=== PATIENT | female | born 1995 | race African-American/Black ===

== ENCOUNTER 2017-11-06 21:14 | Emergency (ER) | payer SELFPAY ==
[2017-11-06 21:24] VITALS: BP 136/85; PULSE 90; TEMP 99.1; BMI 31.3
--- NOTE | 2017-11-06 23:14 | PDOC ---
History of Present Illness - General Chief Complaint: Respiratory Stated Complaint: COUGH Time Seen by Provider: 11/06/17 21:20 - History of Present Illness Initial Comments: This 22-year-old woman with no significant past medical history presents with a one-day history of nonproductive cough, subjective fever, sore throat. Patient has just returned by airplane from a 5 day vacation at [facility]. Patient reports no symptoms during the stay; her symptoms began when she was traveling home. She denies vomiting/diarrhea. She has not had significant body aches, shortness of breath or wheezing. Her mother, who traveled with her, has similar symptoms. Patient had flu shot this winter. No history of strep pharyngitis as an adult and no exposure to school-aged children Brief history of smoking: One to 2 cigarettes per day for 3 years, stopping several months ago. No history of asthma or other chronic respiratory illnesses. Past History - Past Medical History Allergies/Adverse Reactions: Allergies Allergy/AdvReac Type Severity Reaction Status Date / Time No Known Allergies Allergy Unverified 11/06/17 21:24 CVA: No COPD: No - Immunization History Immunization Up to Date: Yes - Suicide/Smoking/Psychosocial Hx Smoking History: Unknown if ever smoked Have you smoked in the past 12 months: No Number of Cigarettes Smoked Daily: 0 Information on smoking cessation initiated: No Hx Alcohol Use: No Drug/Substance Use Hx: No Substance Use Type: None Review of Systems - Review of Systems Able to Perform ROS?: Yes Comments:: 12 point review of systems is negative except for what is noted in the history of present illness *Physical Exam - Vital Signs Last Vital Signs Temp Pulse Resp BP Pulse Ox 99.1 F 90 14 136/85 98 11/06/17 21:17 11/06/17 21:17 11/06/17 21:17 11/06/17 21:17 11/06/17 21:17 - Physical Exam Comments: GENERAL: Young adult female, alert and oriented 3, speaking in full sentences and in no acute distress HEAD: Normal with no signs of trauma. EYES: PERRLA, EOMI, sclera anicteric, conjunctiva clear. ENT: Ears normal, nares patent, oropharynx erythematous without exudates. Dry mucous membranes. NECK: Normal range of motion, supple without lymphadenopathy, JVD, or masses. LUNGS: Breath sounds equal, clear to auscultation bilaterally. No wheezes, and no crackles. HEART:Regular rate and rhythm, normal S1 and S2 without murmur, rub or gallop. ABDOMEN:.normal bowel sounds No guarding,tenderness or rebound.No masses No distention. EXTREMITIES: Normal range of motion, no edema. No clubbing or cyanosis. No erythema, or tenderness. NEUROLOGICAL: Cranial nerves II through XII grossly intact. Normal speech. No focal neurological deficits. MUSCULOSKELETAL: Back non-tender to palpation, no CVA tenderness SKIN: Warm, Dry, normal turgor, no rashes or lesions noted. Progress Note - Progress Note Progress Note: Although no known contacts with strep pharyngitis patients, the patient has just arrived home from a vacation and had exposure to many people over the last week. Quick strep/throat culture sent. Quick strep negative. Throat culture pending. Clinical presentation most consistent with viral pharyngitis/viral bronchitis. Doubt influenza. Patient will be discharged with instructions to drink plenty of fluids, eat use anti-inflammatory or acetaminophen as needed for throat pain/fever. The patient should not work for the next 2 days. She should return to the emergency room if she has persistent high fever, severe cough/shortness of breath or vomiting *DC/Admit/Observation/Transfer Diagnosis at time of Disposition: Viral bronchitis Acute pharyngitis Qualifiers: Pharyngitis/tonsillitis etiology: unspecified etiology Qualified Code(s): J02.9 - Acute pharyngitis, unspecified - Discharge Dispostion Disposition: HOME Condition at time of disposition: Stable - Referrals Referrals: Kvng Leavitt MD [Primary Care Provider] - - Patient Instructions Printed Discharge Instructions: DI for Acute Bronchitis Additional Instructions: Rest; drink plenty of water No work until November 09 Motrin/Aleve/Tylenol as needed for throat pain/fever Return here or see if you have high fever/productive cough/wheezing - Post Discharge Activity Forms/Work/School Notes: Back to Work
== END 2017-11-06 23:49 | disposition home or self-care (01) ==
LOC: FER 21:14
DX: J02.9 Acute pharyngitis, unspecified (principal); J20.8 Acute bronchitis due to other specified organisms; B97.89 Other viral agents as the cause of diseases classified elsewhere
CPT/HCPCS: 87070; 87430; 99282-25

== ENCOUNTER 2017-11-18 13:10 | Emergency (ER) | payer SELFPAY ==
--- NOTE | 2017-11-18 13:41 | PDOC ---
History of Present Illness - General Chief Complaint: Cold Symptoms Stated Complaint: cough x2 weeks Time Seen by Provider: 11/18/17 13:41 History Source: Patient Exam Limitations: No Limitations - History of Present Illness Initial Comments: 11/18/17 15:55 Ms Hathaway is a 22 -year-old otherwise healthy female presented to emergency department with a complaint of cough This is her symptoms have been present for approximately 2 weeks, since her return from [place]. No fevers, chills. She notes her cough is productive of yellow and green sputum. Patient denies chest pain, palpitations. She denies shortness of breath. Patient denies fevers or chills. She did get a flu shot. No myalgias. Denies PSH: Denies Medication: Denies ALLERGIES: Father is ALLERGIC to penicillin, therefore patient places this on her chart as her ALLERGY. GENERAL/CONSTITUTIONAL: No: fever, chills, weakness, loss of appetite. HEAD, EYES, EARS, NOSE AND THROAT: No: change in vision, ear pain, discharge, sore throat, throat swelling. CARDIOVASCULAR: No: chest pain, lightheadedness, palpitations, syncope RESPIRATORY: yes: cough No: shortness of breath, wheezing GASTROINTESTINAL: No: nausea, vomiting, diarrhea, abdominal pain GENITOURINARY: No: dysuria, hematuria, frequency, urgency, flank pain. MUSCULOSKELETAL: No: back pain, neck pain, joint pain, muscle swelling or pain SKIN AND BREASTS: No: lesions, pallor, rash or easy bruising. NEUROLOGIC: No: headache, vertigo, paresthesias, weakness ENDOCRINE: No: unexplained weight gain or loss HEMATOLOGIC/LYMPHATIC: No: anemia, easy bleeding, swelling nodes. GENERAL: The patient is in no acute distress. HEAD: Normal EYES: PERRLA, EOMI, sclera anicteric, conjunctiva clear. ENT: Ears normal, nares patent, oropharynx clear without exudates. Moist mucous membranes. NECK: Normal range of motion, supple LUNGS: Breath sounds equal, clear to auscultation bilaterally. No wheezes, and no crackles. HEART:Regular rate and rhythm, normal S1 and S2 without murmur, rub or gallop. ABDOMEN: Soft, nontender, normoactive bowel sounds. No guarding, no rebound. No masses palpable. EXTREMITIES: Normal range of motion NEUROLOGICAL: Cranial nerves II through XII grossly intact. Normal speech. No focal neurological deficits. MUSCULOSKELETAL: Back non-tender to palpation SKIN: Warm, Dry, normal turgor, no rashes or lesions noted. Past History - Past Medical History Allergies/Adverse Reactions: Allergies Allergy/AdvReac Type Severity Reaction Status Date / Time Penicillins Allergy Unknown Verified 11/18/17 13:11 Home Medications: Ambulatory Orders Azithromycin [Zithromax 250mg Tablets -] 250 mg PO UTDICT #6 tab 11/18/17 Benzonatate [Tessalon Pearls -] 100 mg PO TID PRN #21 capsule 11/18/17 Guaifenesin [Mucinex -] 600 mg PO BID #14 tablet.er 11/18/17 CVA: No COPD: No - Immunization History Immunization Up to Date: Yes - Suicide/Smoking/Psychosocial Hx Smoking History: Unknown if ever smoked Have you smoked in the past 12 months: No Number of Cigarettes Smoked Daily: 0 Hx Alcohol Use: No Drug/Substance Use Hx: No Substance Use Type: None Medical Decision Making - Medical Decision Making 11/18/17 15:58 22 y/o female presents with complaints of productive cough and congestion x 2 weeks Based on the patients o2 saturation, physical exam, being afebrile I find it unlikely that she has consolidation Based on the results I believe the patient is most likely suffering from an upper respiratory infection/bronchitis I've instructed the patient to rest, remain hydrated and to take over the counter analgesics/antipyretics for pain or fever as instructed on the package. I have prescribed Azithromycin I've told the patient that if they develop any new or worsening symptoms to present straight to the ER and to follow up with their primary care provider in 24-48 hours. I've explained the above diagnosis and plan to the patient of which they expressed understanding and are in agreement. Clinical impression: bronchitis, initial presentation *DC/Admit/Observation/Transfer Diagnosis at time of Disposition: Bronchitis - Discharge Dispostion Disposition: HOME Condition at time of disposition: Stable Admit: No - Prescriptions Prescriptions: Azithromycin [Zithromax 250mg Tablets -] 250 mg PO UTDICT #6 tab Benzonatate [Tessalon Pearls -] 100 mg PO TID PRN #21 capsule PRN Reason: Cough Guaifenesin [Mucinex -] 600 mg PO BID #14 tablet.er - Referrals - Patient Instructions Printed Discharge Instructions: DI for Viral Upper Respiratory Infection -- Adult Additional Instructions: Patito Thanks for coming in to the ER today Today you were seen for an upper respiratory infection. Take the antibiotic zithromax as directed. You may take tessalon perles as needed for cough during the day. You may take mucinex as needed for cough at night. Stay well hydrated and rest. Follow up with your primary care provider within 24 to 48 hours. Go to the emergency room if any new or worsening symptoms develop. - Post Discharge Activity Forms/Work/School Notes: Back to Work, Back to School
[2017-11-18 14:36] VITALS: BP 129/85; PULSE 83; TEMP 98.5; BMI 29.7
== END 2017-11-18 16:27 | disposition home or self-care (01) ==
LOC: FER 13:10
DX: J40 Bronchitis, not specified as acute or chronic (principal)
CPT/HCPCS: 71046-TC-FY; 84703; 99282-25